=== PATIENT | female | born 1960 | race Caucasian/White ===

== ENCOUNTER 2025-03-12 20:02 | Emergency (ER) | payer BC ==
[~2025-03-12] VITALS: Ht 165.1 cm; Wt 52.6 kg
[2025-03-12 22:16] VITALS: BP 139/95; TEMP 98.1; O2SAT 99
== END 2025-03-12 22:16 | disposition home or self-care (01) ==
LOC: ER 20:04
DX: S01.111A Laceration without foreign body of right eyelid and periocular area, initial encounter (principal); I10 Essential (primary) hypertension; R51.9 Headache, unspecified; W01.10XA Fall on same level from slipping, tripping and stumbling with subsequent striking against unspecified object, initial encounter; Y93.89 Activity, other specified; Y92.238 Other place in hospital as the place of occurrence of the external cause; Y99.8 Other external cause status
CPT/HCPCS: 70450-TC; 70486-TC